=== PATIENT | male | born 1990 | race Caucasian/White ===

== ENCOUNTER 2019-09-21 21:23 | Emergency (ER) | payer OTHER, BC, SELFPAY ==
[2019-09-21 21:24] VITALS: BP 103/67; PULSE 84; RESP 16; TEMP 36.7; O2SAT 100; BMI 32.5
--- NOTE | 2019-09-21 22:57 | ED.VIS.GEN ---
History of Present Illness Chief Complaint: Other, Pain/Inj Informant: Patient Narrative: Stated that he injured his right ribs today at work approximately 3 hours ago. He stated a metal mellisa came down onto his right rib cage. He stated he heard a popping noise. No home treatment. Came in for further evaluation. Hurts to push on it and cough or take a deep breath. No previous injury to this area. Current severity is moderate. Does not feel short of breath. Past Medical History - Allergies and Home Meds Allergies/Adverse Reactions: Allergies No Known Allergies Allergy (Verified 09/21/19 21:26) Primary Care Physician: Care Physician,No Primary [Primary Care Provider] - Prior records reviewed: Yes Past Medical History: None Surgical History: noncontributory Lives: With Family Smoking Status: Current some day smoker Alcohol: None Drugs: None Review of Systems General: Denies: Chills, Fever, Sweats Eyes: Denies: Visual changes - bilaterally, Diplopia ENT: Denies: Rhinorrhea, Sore throat Cardiovascular: Denies: Chest pain, Palpitations Respiratory: Denies: Dyspnea, Cough, Dyspnea on exertion Gastrointestinal: Reports: Abdominal pain - Right rib cage area. Denies: Nausea, Vomiting, Diarrhea, Melena, Hematochezia Genitourinary: Denies: Dysuria, Hematuria, Frequency Musculoskeletal: Denies: Back pain, Extremity Pain Skin: Denies: Rash, Wounds Neurological: Denies: Headache, Weakness, Numbness Physical Exam Vital Signs/Narrative: Vital Signs Temp Pulse Resp BP Pulse Ox 09/21/19 21:24 98.1 F 84 16 103/67 100 General: Well nourished, Well developed, No Acute Distress Head: Normocephalic, Atraumatic Eyes: Perrl, EOMI ENT: Moist mucous membranes, No rhinorrhea Neck: Supple, Nontender Cardiovascular: Regular rate, Regular rhythm, No murmurs Respiratory: No distress, CTA bilaterally, Chest nontender Abdomen: Soft, Nondistended, Normal bowel sounds, Tender - Tender in the right anterior rib cage with a very small abrasion. There is no bony step-off or deformity or crepitus. There is no flail chest. Back: Nontender, Normal Inspection Extremities: Nontender, No edema Skin: Normal color, No rash Neurological: Alert, Oriented x3, Cranial nerves II-XII grossly intact, Normal Strength, Normal Sensation Psychological: Normal affect, Normal Mood Diagnostic/Tx/Re-eval - Medical Decision Making Patient given ibuprofen. X-ray of the ribs obtained. X-ray negative. Patient will follow-up as an outpatient with [facility]. He will take ibuprofen. We will follow-up as an outpatient ED Disposition - Plan for ED Patient: Disposition: Psych[facility] Hospital or Unit Diagnosis: Rib contusion Instructions: Rib Contusion Referrals: [facility] [GROUP OF PHYSICIANS] -
[2019-09-21] MEDS: Ibuprofen 400 MG Tablet 800 MG PO (23:10)
--- NOTE | 2019-09-21 23:10 | RAD_ITS ---
STUDY: X-RAY - UNILATERAL RIBS ( RIGHT ) WITH CHEST REASON FOR EXAM: Male, 29 years old. HIT WITH A BAR IN RIGHT RIB CAGE TECHNIQUE - RIBS: 2 view(s) of the ribs. TECHNIQUE - CHEST: Single AP portable view of the chest. COMPARISON: None. FINDINGS - RIBS: Normal visualized ribs without a demonstrated fracture. FINDINGS - CHEST: The lungs are clear and expanded. There is no demonstrated pleural abnormality. Normal size heart. Normal mediastinum and veronica. Normal visualized pulmonary arteries. Normal visualized aortic arch and descending thoracic aorta. Normal visualized thoracic spine. Normal visualized ribs, clavicles, and shoulders. There is no demonstrated abnormality of the visualized soft tissue structures of the upper abdomen. RAD/Ribs Uni Min 3V w/PA Chest IMPRESSION: RIBS: Normal x-ray examination of the ribs. CHEST: Normal x-ray examination of the chest. Electronically Signed: Sincere Cochran, at 0:07 EST Tel , Service support ,
[2019-09-22 00:37] VITALS: RESP 16
== END 2019-09-22 00:37 | disposition home or self-care (01) ==
PROVIDERS: Emergency Provider Emergency Medicine
DX: S20.211A Contusion of right front wall of thorax, initial encounter (principal); W22.8XXA Striking against or struck by other objects, initial encounter; Y93.9 Activity, unspecified; Y92.9 Unspecified place or not applicable; Y99.0 Civilian activity done for income or pay; F17.200 Nicotine dependence, unspecified, uncomplicated
CPT/HCPCS: 71101; 99283

== ENCOUNTER 2019-12-01 11:59 | Emergency (ER) | payer BC, SELFPAY ==
[2019-12-01 12:00] VITALS: BP 107/79; PULSE 76; RESP 18; TEMP 36.9; O2SAT 99; BMI 31.2
--- NOTE | 2019-12-01 12:24 | EKG12_ITS ---
Test Reason : CP Blood Pressure : / mmHG Vent. Rate : 065 BPM Atrial Rate : 065 BPM P-R Int : 130 ms QRS Dur : 090 ms QT Int : 394 ms P-R-T Axes : 000 -14 012 degrees QTc Int : 409 ms Normal sinus rhythm Normal ECG Confirmed by MATTEO CROWELL MD ([id number]), news copy editor SREE PLATA ([id number]) on 12/04/2019 3:37:12 PM Referred By: ADRIANA Confirmed By:MATTEO CROWELL MD
--- NOTE | 2019-12-01 12:24 | RAD_ITS ---
STUDY: X-RAY CHEST REASON FOR EXAM: Male, 29 years old. Chest pain TECHNIQUE: Single AP portable view of the chest. COMPARISON: 09/21/2019 FINDINGS: The lungs are clear and expanded. There is no demonstrated pleural abnormality. Normal size heart. Normal mediastinum and veronica. Normal visualized pulmonary arteries. Normal visualized aortic arch and descending thoracic aorta. Normal visualized thoracic spine. Normal visualized ribs, clavicles, and shoulders. There is no demonstrated abnormality of the visualized soft tissue structures of the upper abdomen. RAD/Chest 1 View (Portable) IMPRESSION: Normal x-ray examination of the chest. Electronically Signed: Cam Oakes, at 12:41 EST Tel , Service support ,
[2019-12-01 12:52] LABS: Absolute Lymphocyte Count 2.54 X10^3/uL (0.83-4.51); Absolute Neutrophil Count 3.3 X10^3/uL (2.0-7.7); Basophil# 0.08 X10^3/uL; Basophil% 1.2 % (0-1); Eosinophil# 0.27 X10^3/uL; Eosinophils% 3.9 % (0-5); Hemoglobin 14.6 g/dL (13.0-16.5); Lymphocyte # 2.54 X10^3/ul (4.0); Mean Corpuscular Volume 85.5 fL (80-94); Monocyte# 0.65 X10^3/uL; Monocyte% 9.5 % (0-10); NRBC Flagged by Analyzer 0 % (0-5); Neutrophil # 3.31 X10^3/uL (2.7-7.7); Neutrophil % 48.1 % (47-70); Platelet Count 269 K/mm3 (150-450); RBC Distribution Width SD 37.2 fl (35.1-43.9); Red Blood Count 5.03 M/mm3 (4.6-6.2); White Blood Count 6.9 K/mm3 (4.4-11.0)
[2019-12-01 13:05] LABS: D-Dimer Quantitative (DVT/PE) 0.29 FEU/ug/m (0.27-0.49)
[2019-12-01] MEDS: Ketorolac 15 MG/ML Vial IV (13:06)
[2019-12-01 13:07] VITALS: BP 113/68; PULSE 52; RESP 12; O2SAT 100
[2019-12-01 13:07] LABS: Anion Gap 3 (5-15); BUN 13 mg/dL (7-18); BUN/Creat Ratio 14.6 RATIO (10-20); Calcium,Total 9.2 mg/dL (8.5-10.1); Chloride 111 mmol/L (98-107); Creatinine, Serum 0.89 mg/dL (0.70-1.30); EST Glomerular Filtration Rate 106 mL/min (>60); Est Glom Filt Rate - Afr Amer 128 mL/min (>60); Glucose 86 mg/dL (74-106); Sodium Level 141 mmol/L (136-145)
--- NOTE | 2019-12-01 14:13 | ED.VIS.GEN ---
History of Present Illness Chief Complaint: Chest Pain Informant: Patient Narrative: Patient presents with chest pain for 2 to 3 weeks, it is worse with movement twisting and bending as well as pressing in that region. His pain got worse today. He has no radiation of the pain he has no back pain or tearing sensation. He has no DVT or PE risk factors. Pain is sharp stabbing. Past Medical History - Allergies and Home Meds Allergies/Adverse Reactions: Allergies No Known Allergies Allergy (Verified 12/01/19 12:05) Primary Care Physician: Tess Nicholson DO [Primary Care Provider] - Past Medical History: None Surgical History: noncontributory Smoking Status: Current every day smoker Review of Systems All systems negative except as indicated General: Denies: Fever Cardiovascular: Reports: Chest pain. Denies: Palpitations, Heart racing Respiratory: Denies: Dyspnea, Cough Gastrointestinal: Denies: Abdominal pain, Nausea Musculoskeletal: Denies: Myalgias, Neck pain, Back pain Neurological: Denies: Weakness Hematologic: Denies: Easy bruising Physical Exam Vital Signs/Narrative: Vital Signs Temp Pulse Resp BP Pulse Ox 12/01/19 13:07 52 L 12 113/68 100 12/01/19 12:00 98.4 F 76 18 107/79 99 General: Well nourished, Well developed ENT: Moist mucous membranes Neck: Supple Cardiovascular: Regular rate, Regular rhythm Respiratory: No distress, CTA bilaterally, Chest tenderness, - - There is reproducible chest wall pain in the costochondral fourth and fifth spaces left parasternal region. Abdomen: Soft, Nontender Back: Nontender, Normal Inspection Extremities: Nontender, No edema Skin: Normal color, No rash Neurological: Alert, Oriented x3 Diagnostic/Tx/Re-eval - Rhythm Strip Rhythm Strip: Sinus Rhythm Rate: 65 Ectopy: None - EKG Initial EKG Interpretation: - - Normal sinus rhythm with a rate of 65. Normal ME and QTc interval. - Medical Decision Making Patient has reproducible chest wall pain with a normal EKG and chest x-ray. He has a normal troponin his pain has been ongoing for 2 weeks. This is likely chest wall. I discussed with them I will put him on Naprosyn for home. ED Disposition - Plan for ED Patient: Disposition: Home or Assisted Living Diagnosis: Chest wall pain Instructions: CHEST WALL PAIN, Costochondritis Prescriptions: Naproxen [Naprosyn] 500 mg PO BID PRN #20 tab Prescription Printed Referrals: Tess Nicholson DO [Primary Care Provider] - 3-5 Days
[2019-12-01 14:44] VITALS: BP 117/83; PULSE 60; RESP 18; O2SAT 99
== END 2019-12-01 14:50 | disposition home or self-care (01) ==
PROVIDERS: Emergency Provider Emergency Medicine; PCP Family Medicine
DX: R07.89 Other chest pain (principal); F17.200 Nicotine dependence, unspecified, uncomplicated
CPT/HCPCS: 71045; 80048; 84484; 85025; 85379; 93005; 96374; 99285; J7030; A4216

== ENCOUNTER 2021-01-01 15:58 | Outpatient (RCR) | payer BC, SELFPAY | END 2021-03-04 23:59 | LOC: IMMUN 15:58 | PROVIDERS: PCP Family Medicine; Visit Provider Family Medicine | DX: Z23 Encounter for immunization (principal) | CPT/HCPCS: 0002A; 91300 ==

== ENCOUNTER 2022-02-06 07:33 | Emergency (ER) | payer BC, SELFPAY ==
[2022-02-06 07:34] VITALS: BP 109/77; PULSE 71; RESP 20; TEMP 36.8; O2SAT 99; BMI 31.8
--- NOTE | 2022-02-06 08:27 | EX.ED.DYSGE1 ---
HPI History of Present Illness Chief Complaint: Sore Throat Informant: patient Narrative Narrative: Patient is a 31-year-old male with history of depression on daily Zoloft and prior tonsillectomy presenting with sore throat. Patient states he woke up and he has extreme throat pain. Feels short of breath because he feels that his throat is swollen. Denies any drooling or difficulty swallowing. Denies any fever. States he felt fine when he went to bed last night. Denies any dental pain. Denies any ear pain. Never had a thing like this before. No other complaints at this time. PFSH PFSH Home Medications amoxicillin-pot clavulanate 1 tab PO BID #14 tab 02/06/22 [Rx Last Taken Unknown] ibuprofen 600 mg PO Q6H PRN #20 tab 02/06/22 [Rx Last Taken Unknown] sertraline 50 mg PO DAILY 02/06/22 [History Last Taken Unknown] Allergy/AdvReac Type Severity Reaction Status Date / Time No Known Allergies Allergy Verified 02/06/22 07:37 Social History Smoking Status: Current every day smoker tobacco type: cigarettes ROS ROS ED Constitutional Constitutional ED: Denies chills or fever(s) Eyes Eyes: Denies change in vision ENT ENT ED: Reports sore throat; Denies ear pain or rhinorrhea Cardiovascular Cardiovascular: Denies chest pain, orthopnea or palpitations Respiratory/Chest Respiratory/Chest: Reports dyspnea; Denies cough or orthopnea Gastrointestinal Gastrointestinal: Denies abdominal pain, diarrhea, nausea or vomiting Genitourinary Genitourinary ED: Denies dysuria Musculoskeletal Musculoskeletal: Denies arthralgias or myalgias Integumentary Denies rash Neurologic Neurologic: Denies headache(s) or weakness EXAM Physical Exam Const Vital Signs: 02/06/22 07:34 Temperature 98.2 F Temperature Source Temporal Pulse Rate 71 Respiratory Rate 20 H Blood Pressure 109/77 Blood Pressure Mean 87 Pulse Ox 99 Oxygen Delivery Method Room Air Positive well nourished and well developed General Appearance ED: well developed and NAD HEENT Reports TM's clear and dry mucous membranes HEENT Narrative: Slightly erythematous oropharynx. No ulcers or lesions appreciated. Uvula is midline. Halitosis present. Normal phonation. No elevation of the tongue. Negative for trauma Tympanic Membrane ED: Yes TM's clear Mouth ED: Yes dry mucous membranes Mouth: dry mucous membranes Eyes PERRL and EOMs intact bilaterally Neck supple Neck Narrative: No stridor. Patient does have mild diffuse tenderness of the anterior neck. No crepitus appreciated. No edema appreciated. Normal range of motion. Chest Wall inspection of chest normal Resp normal respiratory effort and clear to auscultation bilaterally Auscultation: Negative for wheezes Cardio regular rate, regular rhythm and no murmurs GI normal to inspection, nondistended, normoactive bowel sounds and non-tender Palpation: soft Extremity normal to inspection Neuro oriented x3 and CN's II-XII intact bilaterally Sensorium / Orientation: alert Psych mental status grossly normal Skin no rashes or lesions noted MDM MDM MDM Narrative Medical decision making narrative: Patient evaluated for sudden onset of anterior throat pain. He feels that he is having a hard time breathing because of the throat swelling and discomfort. Patient peers nontoxic. Does appear mildly dehydrated on exam is given IV fluids. No significant erythema on exam. Normal phonation. No clinical signs of airway obstruction. On repeat evaluation patient feels improved. CT shows soft tissue asymmetry of the left-sided hypopharynx which is read as inflammatory versus mass. Case is discussed with ENT on-call, Dr. Finch. He reviewed the images and feels that likely this is more inflammatory. Will discharge patient on Motrin and Augmentin. He was given Decadron in the emergency room. Patient will follow-up with Dr. Finch for scope and further evaluation. At this time I am not concerned for airway compromise and patient is given return precautions. He verbalizes agreement of this plan. Discharged home in stable condition Lab Data Attestation: I reviewed the patient's lab results. Labs: Laboratory Results - last 24 hr 02/06/22 02/06/22 08:29 08:29 WBC 10.7 RBC 5.11 Hgb 15.0 Hct 43.6 MCV 85.3 MCH 29.4 MCHC 34.4 RDW Std Deviation 36.7 RDW Coeff of Obdulio 11.9 Plt Count 248 MPV 9.5 Immature Gran % (Auto) 0.300 Neut % (Auto) 67.8 Lymph % (Auto) 20.9 [place] % (Auto) 7.9 Eos % (Auto) 2.2 Baso % (Auto) 0.9 Absolute Neuts (auto) 7.3 Absolute Lymphs (auto) 2.23 Nucleated RBC % 0 Sodium 140 Potassium 4.1 Chloride 109 H Carbon Dioxide 29.0 Anion Gap 2 L BUN 19 H Creatinine 0.93 Estim Creat Clear Calc 124.00 Est GFR (MDRD) Af Amer 120 Est GFR (MDRD) Non-Af 99 BUN/Creatinine Ratio 20.4 H Glucose 93 Calcium 8.7 Radiography Diagnostic Testing: Clinical Impression(s) from Imaging Studies Soft Tissue Neck CT 02/06/22 08:43 IMPRESSION: Soft tissue asymmetry is seen in the left side of the hypopharynx just caudad to the base of the tongue as described. Clinical correlation is recommended. Electronically Signed: Chandana Nuñez MD at 8:59 EDT , Discharge Plan Triage Chief Complaint: Sore Throat ED Provider: Arabella Moore Dx/Rx/DC Orders Clinical Impression: Pharyngitis, acute, Abnormal CT scan Instructions: ED Pharyngitis, Viral Prescriptions: New ibuprofen 600 mg tablet 600 mg PO Q6H PRN (Reason: pain) Qty: 20 RF: 0 amoxicillin-pot clavulanate 875-125 mg tablet 1 tab PO BID Qty: 14 RF: 0 No Action sertraline 50 mg tablet 50 mg PO DAILY RF: 0 Primary Care Provider: Tess Nicholson Referrals: Israel Etienne MD [STAFF PHYSICIAN] - As soon as possible Tess Nicholson DO [Primary Care Provider] - Activity Restrictions/Additional Instructions: Your CT showed a focal area of swelling which could be inflammatory versus a mass. More likely this is inflammatory we will put you on anti-inflammatories and antibiotics. You are given a dose of long-acting steroids in the ER. Please follow-up with ear nose and throat doctor. Call to schedule an appointment within the next week. Disposition Disposition: Home, Self Care
[2022-02-06] MEDS: Ketorolac 15 MG/ML Vial IV (08:35)
[2022-02-06] MEDS: 0.9% Normal Saline 1,000 ML 999 ML IV (08:35)
[2022-02-06] MEDS: dexAMETHasone 4 MG Tablet 10 MG PO (08:35)
[2022-02-06 08:39] LABS: Absolute Lymphocyte Count 2.23 X10^3/uL (0.83-4.51); Absolute Neutrophil Count 7.3 X10^3/uL (2.0-7.7); Basophil% 0.9 % (0-1); Eosinophil# 0.23 X10^3/uL; Eosinophils% 2.2 % (0-5); Hematocrit 43.6 % (40-54); Lymphocyte # 2.23 X10^3/ul (0.83-4.51); Lymphocyte % 20.9 % (19-41); Mean Corp Hgb Conc 34.4 g/dL (32-36); Mean Corpuscular Hgb 29.4 pg (27.0-32.0); Mean Corpuscular Volume 85.3 fL (80-94); Mean Platelet Vol. 9.5 fl (6.2-12.0); Monocyte# 0.84 X10^3/uL; Monocyte% 7.9 % (0-10); NRBC Flagged by Analyzer 0 % (0-5); Neutrophil # 7.25 X10^3/uL (2.7-7.7); Neutrophil % 67.8 % (47-70); Platelet Count 248 K/mm3 (150-450); RBC Distribution Width CV 11.9 % (11.6-14.6); RBC Distribution Width SD 36.7 fl (35.1-43.9); Red Blood Count 5.11 M/mm3 (4.6-6.2); White Blood Count 10.7 K/mm3 (4.4-11.0)
--- NOTE | 2022-02-06 08:43 | CT_ITS ---
STUDY: CT SOFT TISSUE NECK WITH CONTRAST REASON FOR EXAM: Male, 31 years old. Odynophagia RADIATION DOSAGE (If Supplied By Facility): CTDIvol = ( 15.20 ) mGy, DLP = ( 474.55 ) mGycm TECHNIQUE: The patient was scanned in a multi-detector CT scanner. High resolution transaxial imaging was performed following intravenous administration of IV 75mL Isovue-370. Sagittal and coronal images were reconstructed. Individualized dose optimization techniques were used for this CT. COMPARISON: None. FINDINGS: Normal bilateral parotid glands. Normal bilateral prepared foods associate spaces. Normal bilateral parapharyngeal spaces. Normal bilateral carotid spaces. Normal bilateral sublingual and submandibular glands and spaces. Normal visualized nasopharynx. Normal retropharyngeal space. Normal perivertebral space. Normal visualized bilateral faucial tonsils. There is soft tissue asymmetry along the left side of the hypopharynx just caudad to the base of the tongue on the left side. This asymmetry measures 1.7 cm x 2 cm. This may represent a localized inflammatory process versus possible mass. Clinical correlation recommended. There are minimally enlarged lymph nodes of the neck, with preservation of normal brian architecture, consistent with a reactive lymph hyperplasia. There is no demonstrated solid or cystic mass lesion. There is no abnormal contrast enhancement. Normal epiglottis, bilateral vallecula and hypopharynx. The pre-epiglottic and paraglottic adipose spaces are normal. Normal visualized bilateral piriform sinuses, aryepiglottic folds, vocal cords, and arytenoid-cricoid articulations. Normal subglottic trachea. Normal bilateral lobes of the thyroid gland. Normal visualized pulmonary apices. Mucosal thickening of the ethmoid sinuses bilaterally. Focal mucosal thickening along the anterior lateral aspect of the right sphenoid sinus. Normal visualized cervical spine. CT/Soft Tissue Neck WITH Contrast IMPRESSION: Soft tissue asymmetry is seen in the left side of the hypopharynx just caudad to the base of the tongue as described. Clinical correlation is recommended. Electronically Signed: Chandana Nuñez MD at 8:59 EDT ,
[2022-02-06 08:48] LABS: Anion Gap 2 (5-15); BUN 19 mg/dL (7-18); BUN/Creat Ratio 20.4 RATIO (10-20); Calcium,Total 8.7 mg/dL (8.5-10.1); Chloride 109 mmol/L (98-107); Creatinine, Serum 0.93 mg/dL (0.70-1.30); EST Glomerular Filtration Rate 99 mL/min (>60); Est Glom Filt Rate - Afr Amer 120 mL/min (>60); Glucose 93 mg/dL (74-106); Potassium 4.1 mmol/L (3.5-5.1); Sodium Level 140 mmol/L (136-145)
[2022-02-06] MEDS: Amox/Clavulanate 875 MG Tablet PO (09:47)
[2022-02-06 09:49] VITALS: BP 118/84; PULSE 72; RESP 15; O2SAT 97
== END 2022-02-06 09:51 | disposition home or self-care (01) ==
PROVIDERS: Emergency Provider Emergency Medicine; PCP Family Medicine; Visit Provider Emergency Medicine
DX: J02.9 Acute pharyngitis, unspecified (principal); F17.210 Nicotine dependence, cigarettes, uncomplicated; R22.1 Localized swelling, mass and lump, neck; R06.02 Shortness of breath; R93.89 Abnormal findings on diagnostic imaging of other specified body structures
CPT/HCPCS: 70491; 80048; 85025; 96361; 96374; 99284; Q9967; A4216

== ENCOUNTER → 2022-02-09 | Outpatient (CLI) | payer BC, SELFPAY | END | disposition home or self-care (01) | LOC: LABSPEC 15:15 | PROVIDERS: PCP Family Medicine; Visit Provider Otolaryngology | DX: J02.9 Acute pharyngitis, unspecified (principal) | CPT/HCPCS: 87070 ==

== ENCOUNTER → 2024-01-14 | Outpatient (CLI) | payer BC, SELFPAY ==
--- NOTE | 2024-01-14 13:28 | MRI_ITS ---
STUDY: MRI LEFT SHOULDER REASON FOR EXAM: Male, 33 years old. Pain, assess SLAP or RC tear - fillings in teeth. TECHNIQUE: Standardized fat and water weighted pulse sequences were obtained in all 3 orthogonal planes. COMPARISON: Left shoulder radiographs dated 12/31/2023. FINDINGS: Normal supraspinatus tendon. Normal infraspinatus tendon. Normal subscapularis tendon. Normal teres minor tendon. Normal supraspinatus muscle. Normal infraspinatus muscle. Normal subscapularis muscle. Normal teres minor muscle. Normal glenohumeral articulation. Normal humeral head and visualized proximal humerus. Normal biceps labral complex. Normal intracapsular long biceps tendon. Normal labrum. Normal capsulo-ligamentous complex. Normal rotator interval. There is hypertrophic acromioclavicular arthrosis, with juxta-articular marrow edema and inferior osteophyte formation, with minimal effacement of the supraspinatus myotendinous junction (coronal T2 series 6 image 9). There is a Type II morphology (curved), with a neutral orientation. There is no subacromial-subdeltoid bursal fluid. Normal visualized coracohumeral and coracoacromial ligaments. Normal quadrilateral space. Normal axillary space. Normal deltoid muscle. Normal trapezius muscle. MRI/Upper Ext Joint Only(Routine) IMPRESSION: Hypertrophic acromioclavicular arthrosis, with juxta-articular marrow edema and inferior osteophyte formation, with minimal effacement of the supraspinatus myotendinous junction. No rotator cuff tear or discrete labral tear. Electronically Signed: Med Chauhan MD at 14:46 EDT ,
== END | disposition home or self-care (01) ==
PROVIDERS: PCP Family Medicine; Referring Provider Orthopaedic Surgery Sports Medicine; Visit Provider Orthopaedic Surgery Sports Medicine
DX: M25.512 Pain in left shoulder (principal)
CPT/HCPCS: 73221

== ENCOUNTER 2024-02-16 08:52 | Day surgery (SDC) | payer BC, SELFPAY ==
[2024-02-16] VITALS (9 sets, daily range): BP systolic 109–218; BP diastolic 68–105; PULSE 65–77; RESP 16–20; TEMP 35.7–36.2; O2SAT 93–97; BMI 35.9
[2024-02-16] MEDS: Lactated Ringers 1,000 ML 15 ML IV (09:41)
--- NOTE | 2024-02-16 11:09 | HP.PCM_ITS ---
HPI - General HPI Narrative RANDA SHABAZZ, is a 33 M who presents for left shoulder arthroscopy, subacromial decompression, distal clavicle excision. no changes to h and p. ok to proceed. plan for block. rab post op instructions and narcotic counselling. no further concerns or questions. MR#: [id number] Acct: [id number] Name: RANDA SAHBAZZ Rep #: [id number] : 1990 Provider: Dr. James Monterroso MD Age/Sex: 33/M Location[place] [facility] [place] Status: Signed Intake Vital Signs 12/30/2412:05 Height 6 ft Weight: 268 lb 8 oz BMI 36.3 Intake Visit Reasons: LEFT SHOULDER Is patient in pain?: Yes Allergies No Known Allergies Allergy (Verified 01/24/24 15:56) Medications cholecalciferol (vitamin D3) 1,250 mcg (50,000 unit) capsule 1,250 mcg PO 2XW 12/31/23 [History Confirmed 01/24/24] hydroxyzine HCl 10 mg tablet 20 mg PO BID 12/31/23 [History Confirmed 01/24/24] meloxicam 15 mg tablet 15 mg PO QDAY 12/31/23 [History Confirmed 01/24/24] sertraline 100 mg tablet 100 mg PO QDAY 12/31/23 [History Confirmed 01/24/24] PFSH Medical History (Updated 01/24/24 @ 14:23 by James Monterroso MD) Arthrosis of left acromioclavicular joint Impingement of left shoulder Left shoulder pain Surgical History (Updated 12/31/23 @ 13:12 by Kristine Jarquin) Hx of adenoidectomy Hx of appendectomy Hx of tonsillectomy Family History (Updated 12/31/23 @ 13:14 by Kristine Jarquin) Grandfather Lung cancerGrandmother Dementia Social History (Updated 12/31/23 @ 13:13 by Kristine Jarquin) Smoking Status: Former smoker alcohol intake: current alcohol intake frequency: a few times a week HPI LEFT SHOULDER Details: This documentation accurately reflects the service provided and the decisions made by me, Dr. James Monterroso MD 01/24/24 [id number]. Part of today?s visit was documented by [ ], acting as scribe. RANDA SHABAZZ is a 33 year old M here today for follow-up left shoulder MRI. doing a bit better this morning, better ROM. Patient has continued to experience pain over the last 6 months since July. It gets worse with the a lot of activity especially pushing exercises most the pain is actually on the superior aspect of the shoulder and worse with reaching across the body. Patient has tried rest activity modifications anti-inflammatories as well as self-directed exercises for over 6 weeks. Ortho Exam General General: Yes no acute distress Neurologic: Yes alert and Yes oriented x3 Psychologic: Yes reasonable and appropriate Left Shoulder Skin/Wound: Yes CDI, No ecchymosis, No erythema and No swelling Testing: Yes Hawkin's, Yes Neer's, Yes Speed's, No TTP Biceps, No TTP AC Joint, Yes AROM-External Rotation at side 0-60, No translation, Yes empty can, No jerk, Yes Gonzales, Yes cross arm, Yes scapular symmetry, No scapular winging and Yes belly press normal SHOULDER: normal motor and sens to axillary N, MRU and AIN/PIN. Hand warm well perfused normal radial pulse active FE 170, IR to post belt line, normal bear hug There is pain at the AC joint pain superiorly as well as a positive cross body adduction test. Supplemental Info [facility] [address] [place] [address] Upper Ext Joint Only(Routine) MR#: [id number] Acct: [id number] Name: RANDA SHABAZZ Rep #: [id number] : 1990 M 33 From: Med Chauhan MD PCP: Dr. Tess Nicholson, DO Status: REG CLI Study: Upper Ext Joint Only(Routine) Date of Exam: 01/14/24 Exam# [id number] Ordering Dr: James Monterroso MD STUDY: MRI LEFT SHOULDER REASON FOR EXAM: Male, 33 years old. Pain, assess SLAP or RC tear - fillings in teeth. TECHNIQUE: Standardized fat and water weighted pulse sequences were obtained in all 3 orthogonal planes. COMPARISON: Left shoulder radiographs dated 12/31/2023. FINDINGS: Normal supraspinatus tendon. Normal infraspinatus tendon. Normal subscapularis tendon. Normal teres minor tendon. Normal supraspinatus muscle. Normal infraspinatus muscle. Normal subscapularis muscle. Normal teres minor muscle. Normal glenohumeral articulation. Normal humeral head and visualized proximal humerus. Normal biceps labral complex. Normal intracapsular long biceps tendon. Normal labrum. Normal capsulo-ligamentous complex. Normal rotator interval. There is hypertrophic acromioclavicular arthrosis, with juxta-articular marrow edema and inferior osteophyte formation, with minimal effacement of the supraspinatus myotendinous junction (coronal T2 series 6 image 9). There is a Type II morphology (curved), with a neutral orientation. There is no subacromial-subdeltoid bursal fluid. Normal visualized coracohumeral and coracoacromial ligaments. Normal quadrilateral space. Normal axillary space. Normal deltoid muscle. Normal trapezius muscle. MRI/Upper Ext Joint Only(Routine) IMPRESSION: Hypertrophic acromioclavicular arthrosis, with juxta-articular marrow edema and inferior osteophyte formation, with minimal effacement of the supraspinatus myotendinous junction. No rotator cuff tear or discrete labral tear. Electronically Signed: Med Chauhna MD at 14:46 EDT Reading Location ID and State: [facility] / [place] , Service support , I independently reviewed the imaging. Concur with radiologist report. Coding Level of Care Code Off vis,est,level 3 Diagnoses Left shoulder pain M25.512 Impingement of left shoulder M25.812 Arthrosis of left acromioclavicular joint M19.012 Assessment and Plan Assessment and Plan (1) Left shoulder pain: Status: Acute Plan: 33-year-old man follow-up left shoulder MRI which shows arthrosis of the AC joint edema of the distal clavicle as well as mild impingement syndrome no rotator cuff tears. Patient counseled on diagnosis prognosis different treatment options available to him including rest ice anti-inflammatories activity modifications physical therapy doing nothing injections subacromial space or even at the AC joint as well as a surgical management. My hands surgery would involve left shoulder arthroscopy, subacromial decompression, distal clavicle excision. I think a significant amount of his pain is actually coming from the AC joint as well as the distal clavicle edema which is present on the MRI. He understands and wishes to proceed with surgical management of this and signed the consent form for left shoulder arthroscopy, subacromial decompression, distal clavicle excision. Pros and cons risks and benefits were discussed with the patient including but not limited to infection, pain, stiffness, bleeding, damage to surrounding structures, neurovascular injury, recurrence or retear, failure or wear of hardware or fixation, instability, fracture, deep vein thrombosis and pulmonary embolism, anesthetic risks, , patient dissatisfaction, need for further surgery and other risks. Patient understood and wished to proceed with surgery, and signed the informed consent documentation. [facility] Medical History (Updated 02/02/24 @ 11:18 by Debi Morejon) Depression Anxiety Marijuana use Alcohol use Fatty liver Migraine headache Vapes nicotine containing substance Former smoker Arthrosis of left acromioclavicular joint Impingement of left shoulder Left shoulder pain Home Medications ?Medication ?Instructions ?Recorded ?Last Taken ?Type cholecalciferol (vitamin D3) 1,250 1,250 mcg PO MOTH 12/31/23 Unknown History mcg (50,000 unit) capsule hydroxyzine HCl 10 mg tablet 20 mg PO BID PRN PRN anxiety 12/31/23 Unknown History meloxicam 15 mg tablet 15 mg PO QDAY 12/31/23 Unknown History sertraline 100 mg tablet 100 mg PO QDAY 12/31/23 Unknown History Allergy/AdvReac Type Severity Reaction Status Date / Time No Known Allergies Allergy Verified 02/16/24 09:26 Family History (Updated 12/31/23 @ 13:14 by Kristine Jarquin) Grandfather Lung cancer Grandmother Dementia Surgical History (Updated 02/02/24 @ 11:18 by Debi Morejon) Hx of wisdom tooth extraction Hx of adenoidectomy Hx of appendectomy Hx of tonsillectomy Social History (Updated 12/31/23 @ 13:13 by Kristine Jarquin) Smoking Status: Current every day smoker tobacco type: cigarettes and e- cigarettes alcohol intake: current alcohol intake frequency: a few times a week Vital Signs Vital Signs Vital Signs: 02/16/24 09:27 02/16/24 09:27 Temperature 97.2 F L Temperature Source Temporal Pulse Rate 73 Respiratory Rate 16 Respiratory Pattern Normal Blood Pressure 109/83 H Blood Pressure Mean 91 Blood Pressure Source Monitor Blood Pressure Position Semi-Fowlers Blood Pressure Location Left Arm Pulse Ox 97 Oxygen Delivery Method Room Air Weight Weight: 264 lb 12.403 oz Body Mass Index (BMI) 35.9
[2024-02-16] MEDS: Cefazolin 3 GM in 0.9% Normal Saline (100mL Bag) 100 ML IV (11:31)
[2024-02-16] MEDS: Epinephrine (1 mg/ml) 1 MG/ML VIAL (11:59)
--- NOTE | 2024-02-16 12:39 | OP.PCM_ITS ---
Problems Associated Problem List Diagnoses (1) Arthrosis of left acromioclavicular joint: (2) Impingement of left shoulder: (3) Left shoulder pain: Report of Operation Date of Procedure: 02/16/24 Pre-Operative Diagnosis: L shoulder ACJ arthrosis and impingement Post-Operative Diagnosis: same Surgery/Procedure Performed:: L shoulder arthroscopy, debridement, subacromial decompression and distal clavicle excision Surgeon: James Monterroso Type of Anesthesia: Block,Regional and General Anesthesiologist: Teodoro Putnam Estimated Blood Loss (mL): 50 Description of Procedure: Patient brought to the operating room theater. Placed supine on the table. General anesthesia induced. 3 g IV Ancef administered prior to the start of the procedure. Patient transferred left side up lateral decubitus beanbag positioner axillary roll used all bony prominences padded. SCDs on the legs. Upper extremity prepped and draped in the usual sterile fashion with chlorhexidine-based prep solution allowing over 3 minutes drying time prior to draping. Arm in 10 pounds of traction with 45 degrees of abduction. Preoperative timeout performed to confirm the site the patient and the surgery. Began by inserting the arthroscope into the intra-articular portion of the shoulder posterior portal. Did a full diagnostic arthroscopy. Subscapularis as well as rest the rotator cuff tendons appeared normal and intact with there was some minor undersurface fraying of the supraspinatus that I gently debrided. Un [place] 10% thickness. I established inside out spinal needle localized portal through the rotator interval just posterior to the biceps tendon. Biceps tendon itself appeared normal but at the root of the superior labrum there was some minor amount of fraying no gross instability of the biceps upon probing. I debrided the superior labrum. No labrum tear anteriorly. No loose bodies. Axillary recess was normal. Normal cartilage on the glenoid and humeral head. Arthroscopy pictures taken and saved throughout the case. I then inserted the arthroscope into the subacromial space established with lateral accessory portal. There was quite a bit of inflammatory bursitis I did a complete bursectomy down to the lateral gutters. This was an extensive bursectomy. I probed the rotator cuff no tears. I did a subacromial decompression for 3 mm at the anterolateral leading edge for slight downsloping, corrected this to flat undersurface. At the distal clavicle I identified this and using the anterior portal I performed a distal clavicle excision for about 4 mm down to flat margins. I inserted the arthroscope into the AC joint itself to confirm appropriate distal clavicle excision. Case terminated arthroscope withdrawn. Skin cleaned with wet and dry dressing close with the portals with 3-0 Monocryl suture followed by Adaptic 4 x 4 gauze ABD dressing cloth tape and a sling for the upper extremity. Patient woken up from the general anesthetic transferred off the operating table taken postanesthetic care unit in stable condition. All sponge needle instrument counts were correct no complications. CPT code 39280 + [id number]?+ [id number]? Complications none Admit VTE Documentation VTE Present on Admission: No VTE Mechan Device Prophylaxis: SCD's VTE Pharm Prophylaxis ordered?: No Reason prophylaxis not ordered:: Treatment Not Indicated Procedures Musculoskeletal 20xxx-29xxx: Other Procedure See Report
--- NOTE | 2024-02-16 12:47 | DCINST_ITS ---
Discharge Instructions Diet Discharge Diet: No restrictions Activity Discharge Activity: Return to Normal Activity Lifting Restrictions: no heavy lifting, ok for pendulums 4x/day, ok to remove sling as needed Dressing / Incision Call your doctor if your incision/area has: Continuous Slow Oozing, Sudden Increased Bleeding, Increased Pain/ Swelling, Increased Redness, Foul Smelling Discharge and Swelling at the incision site Change Dressing in: leave in place till F/U Follow Up Care Please Follow Up With: James Monterroso MD When: 2 days Test Results: Test results from this visit will be discussed in further detail at your follow- up appointment, if applicable. Discharge Plan Admission Attending Provider: James Monterroso Primary Care Provider: Tess Nicholson Instructions Print Language: Persian Discharge Orders/Prescriptions Prescriptions: New oxycodone-acetaminophen [Endocet] 5-325 mg tablet 1 tab PO Q4H MDD 6 PRN (Reason: pain) 4 Days Qty: 20 0RF No Action hydroxyzine HCl 10 mg tablet 20 mg PO BID PRN PRN (Reason: anxiety) sertraline 100 mg tablet 100 mg PO QDAY meloxicam 15 mg tablet 15 mg PO QDAY cholecalciferol (vitamin D3) 1,250 mcg (50,000 unit) capsule 1,250 mcg PO MOTH Referrals / Follow Up: Tess Nicholson DO [Primary Care Provider] - James Monterroso MD [Med Staff - Active Staff] - Disposition Disposition (needs filled in before D/C Order can be placed): Home, Self Care
== END 2024-02-16 14:51 | disposition home or self-care (01) ==
LOC: SDC 08:58 → AC 08:59
PROVIDERS: PCP Family Medicine; Referring Provider Orthopaedic Surgery Sports Medicine; Visit Provider Orthopaedic Surgery Sports Medicine
PROC: (CPT 29805; principal; 2024-02-16 10:35)
DX: M19.012 Primary osteoarthritis, left shoulder (principal); M25.812 Other specified joint disorders, left shoulder; F17.290 Nicotine dependence, other tobacco product, uncomplicated; F17.210 Nicotine dependence, cigarettes, uncomplicated; F32.A Depression, unspecified; F41.9 Anxiety disorder, unspecified; Z79.899 Other long term (current) drug therapy
CPT/HCPCS: 29824; 29826; 01630; 64415; J7120; J2405

== ENCOUNTER 2024-03-10 11:02 | Emergency (ER) | payer BC, SELFPAY ==
[2024-03-10 11:02] VITALS: BP 134/89; PULSE 84; RESP 16; TEMP 36.2; O2SAT 98; BMI 36.2
--- NOTE | 2024-03-10 11:47 | EDS_ITS ---
HPI <SARA Philip - Last Filed: 03/10/24 13:20> History of Present Illness Chief Complaint: Upper Extremity Injury Narrative Narrative: 33-year-old male had surgery on his left shoulder by Dr. Monterroso on February 18, 2024 with arthroscopy, debridement and subacromial decompression and distal clavicle excision. He was recovering well and followed up with orthopedics and was cleared to remove the sling and had not required pain medication this week. Over the last few days has had 3 episodes of pain in the left shoulder when using his left arm. It happens with minor movements such as setting a pen down or holding his arm to the side below 90 degrees. He gets a sharp pain in the shoulder that either radiates towards his neck or down the tricep area of his left arm. The sharp pain only lasts a few seconds and then he has dull pain lasting about an hour. No new fall or injury. He is right hand dominant. [facility] <SARA Philip - Last Filed: 03/10/24 13:20> [facility] Medical History Depression Anxiety Marijuana use Alcohol use Fatty liver Migraine headache Vapes nicotine containing substance Former smoker Arthrosis of left acromioclavicular joint Impingement of left shoulder Left shoulder pain Home Medications ?Medication ?Instructions ?Recorded ?Last Taken ?Type cholecalciferol (vitamin D3) 1,250 1,250 mcg PO MOTH 12/31/23 Unknown History mcg (50,000 unit) capsule hydroxyzine HCl 10 mg tablet 20 mg PO BID PRN PRN anxiety 12/31/23 Unknown History sertraline 100 mg tablet 100 mg PO QDAY 12/31/23 Unknown History naproxen 500 mg tablet (Naprosyn) 500 mg PO BID PRN pain #20 tabs 03/10/24 Unknown Rx Allergy/AdvReac Type Severity Reaction Status Date / Time No Known Allergies Allergy Verified 03/10/24 11:03 Family History Grandfather Lung cancer Grandmother Dementia Surgical History Hx of wisdom tooth extraction Hx of adenoidectomy Hx of appendectomy Hx of tonsillectomy Social History Smoking Status: Current every day smoker tobacco type: cigarettes and e- cigarettes alcohol intake: current alcohol intake frequency: a few times a week ROS <SARA Philip - Last Filed: 03/10/24 13:20> ROS ED ROS Narrative Constitutional: Negative for fever, chills, malaise. Neuro: Negative for motor/sensory dysfunction. Skin: Negative for rash, abscess, or wound. Musc: Positive for left shoulder pain. No swelling or trauma. EXAM <SARA Philip - Last Filed: 03/10/24 13:20> Physical Exam Narrative Exam Narrative: CONST: Patient sitting in no acute distress. EYES: Normal inspection. NECK: Normal inspection. RESP: No respiratory distress, CTAB. CVS: Regular rate and rhythm, no murmur, no gallop. SKIN: Color normal, no rash, warm, dry, intact. EXTREMITIES: Normal appearance of bilateral upper extremities. Tender palpation over left bicipital groove, no tenderness of the clavicle, spine, scapula, rest of the left upper extremity. 5/5 strength in shoulder abduction, elbow and wrist flexion/extension, and pump room operator strength. 2+ radial pulses. Normal motor and sensory function in axillary median radial ulnar distributions. NEURO: Alert and answering questions appropriately. PSYCH: Normal affect. Const Vital Signs: 03/10/24 11:02 Temperature 97.2 F L Temperature Source Temporal Pulse Rate 84 Respiratory Rate 16 Blood Pressure 134/89 H Blood Pressure Mean 104 Pulse Ox 98 Oxygen Delivery Method Room Air MDM <SARA Philip - Last Filed: 03/10/24 13:20> MDM MDM Narrative Medical decision making narrative: Patient is 3 weeks postop from left shoulder surgery with arthroscopy/osteophyte removal presenting with pain with left shoulder movements over the last few days. The postop incisions are almost fully healed with no signs of infection. He can range the shoulder to 90 degrees and is neurovascularly intact. X-ray shows erosive changes of the distal left clavicle which is where the orthopedist shaved the area is consistent with postsurgical changes. No other acute findings. He was treated with IM Toradol and prescribed naproxen and I recommended follow-up with his surgeon. He was discharged in stable condition. <Dr. Felix Butts, DO - Last Filed: 03/10/24 14:43> [facility] Treatment and Re-Evaluation Narrative: I have personally performed a face to face assessment of the patient and have reviewed the NIOCLE Note. I performed a substantive portion of the visit including all aspects of the following. My wolf findings include: History: Patient presents with left shoulder pain that has been getting worse over the past 3 days. Patient denies any trauma or injury. Patient states he had a recent shoulder surgery by Dr. Monterroso to remove some osteophytes. Patient states it was healing well until 3 days ago. Patient states that it is worse with certain movements. Patient states nothing seems to help with it. Patient admits to some tingling down his left arm and into his left neck. Exam: Vital signs are stable. Patient is afebrile. Patient is in no acute distress. Heart was regular rate and rhythm. Lungs are clear and equal bilaterally. Musculoskeletal exam reveals tenderness over the anterior aspect of the left shoulder. There is no obvious deformity noted. The arthroscopic incisions are healing well. There is no sign of any infection. There is no erythema or warmth noted. Range of motion was limited in all motions of the left shoulder secondary to pain. Strength is 5/5 bilaterally in the upper extremities. There are no sensory deficits noted. Radial pulses are equal bilaterally. Medical Decision Making: Differential diagnosis includes ligament sprain, tendinitis, osteoarthritis, and acromioclavicular separation. X-rays of the left shoulder will be obtained to assess for fracture and acromioclavicular separation. Patient was given injection of Toradol here. X-rays of the left shoulder were obtained. There are 3 views. On my independent interpretation, there is no acute fracture or dislocation noted. There is no foreign body noted. There are no osteophytes noted. Radiologist also interpreted the x-rays and agrees. Patient was advised of his findings. Patient was instructed use ice to the area. Patient was instructed to take Tylenol or ibuprofen as needed for pain. Patient was instructed to follow-up with Dr. Monterroso in 5 to 7 days. Patient was instructed to return if worse in any way. Patient understood and was agreeable with the plan. All questions were answered. Discharge Plan Triage Chief Complaint: Upper Extremity Injury ED Midlevel Provider: Maritza Gomez ED Provider: Schwiger,Felix Dx/Rx/DC Orders Clinical Impression: Left shoulder pain Instructions: ED Shoulder Pain, Uncertain Cause Prescriptions: New naproxen [Naprosyn] 500 mg tablet 500 mg PO BID PRN (Reason: pain) Qty: 20 0RF No Action hydroxyzine HCl 10 mg tablet 20 mg PO BID PRN PRN (Reason: anxiety) sertraline 100 mg tablet 100 mg PO QDAY cholecalciferol (vitamin D3) 1,250 mcg (50,000 unit) capsule 1,250 mcg PO MOTH Primary Care Provider: Tess Nicholson Referrals: Tess Nicholson DO [Primary Care Provider] - Activity Restrictions/Additional Instructions: This could be postoperative pain from the surgery, arthritis, or ligamentous injury. Take naproxen or [id number] or Tylenol as needed and follow-up with Dr. Monterroso. Print Language: Chinese Disposition Disposition: Home, Self Care Discharge Date/Time: 03/10/24 13:22
[2024-03-10] MEDS: Ketorolac 30 MG/ML Syringe IM (11:56)
--- NOTE | 2024-03-10 12:10 | RAD_ITS ---
STUDY: X-RAY - LEFT SHOULDER REASON FOR EXAM: Male, 33 years old. Left shoulder pain. History of prior injury and surgery. TECHNIQUE: 4 view(s) of the shoulder. COMPARISON: Comparison is made with prior study of December 31, 2023. FINDINGS: Normal glenohumeral articulation. There now is evidence of a irregular erosive changes in the distal portion of the left clavicle. This may be related either to prior surgical procedure versus possible infection. Normal acromion. Normal humeral head and visualized proximal humerus. The soft tissue structures are unremarkable. Normal visualized pulmonary apex. RAD/Shoulder min 2 Views IMPRESSION: Since prior study, there is mild erosive changes in the distal portion of the left clavicle. This may be postsurgical in nature. Otherwise, an infectious process should be ruled out. Electronically Signed: Chandana Nuñez MD at 13:07 EDT ,
[2024-03-10 13:21] VITALS: BP 134/78; PULSE 82; RESP 16; TEMP 36.7; O2SAT 99
== END 2024-03-10 13:22 | disposition home or self-care (01) ==
PROVIDERS: Emergency Provider Emergency Medicine; PCP Family Medicine; Visit Provider Emergency Medicine
DX: M25.512 Pain in left shoulder (principal); F17.210 Nicotine dependence, cigarettes, uncomplicated; F17.290 Nicotine dependence, other tobacco product, uncomplicated
CPT/HCPCS: 73030; 96372; 99282

== ENCOUNTER 2024-09-26 05:04 | Emergency (ER) | payer BC, SELFPAY ==
[2024-09-26 05:06] VITALS: BP 131/82; PULSE 109; RESP 18; TEMP 37.1; O2SAT 97; BMI 29.5
[2024-09-26] MEDS: proCHLORPERazine 10 MG/2 ML Vial IV (05:33)
[2024-09-26] MEDS: Ketorolac 30 MG/ML Syringe IV (05:33)
[2024-09-26] MEDS: 0.9% Normal Saline (1000mL) 1,000 ML 999 ML IV (05:33)
[2024-09-26] MEDS: DiphenhydrAMINE 50 MG/ML Syringe 25 MG IV (05:34)
[2024-09-26 05:57] LABS: AST(SGOT) 22 U/L (15-37); Alanine Aminotransfer ALT/SGPT 58 U/L (16-61); Albumin, Serum 4.2 g/dL (3.2-5.0); Alkaline Phosphatase 70 U/L (45-117); Anion Gap 9 (5-15); BUN 28 mg/dL (7-18); BUN/Creat Ratio 25.7 RATIO (10-20); Bilirubin, Direct 0.19 mg/dL (0.00-0.30); Calcium,Total 9.4 mg/dL (8.5-10.1); Chloride 107 mmol/L (98-107); Creatinine, Serum 1.09 mg/dL (0.70-1.30); EST Glomerular Filtration Rate 81 mL/min (>60); Est Glom Filt Rate - Afr Amer 98 mL/min (>60); Estimated Creatinine Clearance 114.07 ml/min; Globulin 4.1 g/dL (2.2-4.2); Glucose 129 mg/dL (74-106); Lipase 23 U/L (13-75); Potassium 4.1 mmol/L (3.5-5.1); Protein, Total 8.3 g/dL (6.4-8.2); Sodium Level 137 mmol/L (136-145)
--- NOTE | 2024-09-26 06:28 | EX.ED.DYSGE1 ---
HPI History of Present Illness Chief Complaint: Nausea/Vomiting/Diarrhea Informant: patient and friend Narrative Narrative: Patient is a 34-year-old male with past medical history of anxiety and depression. He reports around 8:00 he began with generalized abdominal discomfort and then developed bouts of nausea vomiting and diarrhea. He denies any blood or discoloration to either. He denies any known sick contact. He states that his friend ate the same meal and did not develop any symptoms and therefore is low concern for food poisoning. However he can no longer keep food or fluid down and secondary to this comes in for evaluation. [facility] Medical History Depression Anxiety Marijuana use Alcohol use Fatty liver Migraine headache Vapes nicotine containing substance Former smoker Arthrosis of left acromioclavicular joint Impingement of left shoulder Left shoulder pain Home Medications ?Medication ?Instructions ?Recorded ?Last Taken ?Type cholecalciferol (vitamin D3) 1,250 1,250 mcg PO MOTH 12/31/23 Unknown History mcg (50,000 unit) capsule hydroxyzine HCl 10 mg tablet 20 mg PO BID PRN PRN anxiety 12/31/23 Unknown History sertraline 100 mg tablet 100 mg PO QDAY 12/31/23 Unknown History dicyclomine 20 mg tablet 20 mg PO 4X/DAY PRN Abdominal 09/26/24 Unknown Rx bloating/spasm 7 days #28 tabs ondansetron 4 mg disintegrating 4 mg PO TID PRN nausea and 09/26/24 Unknown Rx tablet vomiting #21 tabs Allergy/AdvReac Type Severity Reaction Status Date / Time No Known Allergies Allergy Verified 09/26/24 05:05 Family History Grandfather Lung cancer Grandmother Dementia Surgical History Hx of wisdom tooth extraction Hx of adenoidectomy Hx of appendectomy Hx of tonsillectomy Social History Smoking Status: Current every day smoker tobacco type: cigarettes and e-cigarettes alcohol intake: current alcohol intake frequency: a few times a week ROS ROS ED Constitutional Constitutional ED: Denies chills or fever(s) Eyes Eyes: Denies blurry vision or change in vision ENT ENT ED: Denies sore throat Cardiovascular Cardiovascular: Denies chest pain Respiratory/Chest Respiratory/Chest: Denies cough or dyspnea Gastrointestinal Gastrointestinal: Reports abdominal pain, diarrhea, nausea and vomiting; Denies melena Genitourinary Genitourinary ED: Denies dysuria Musculoskeletal Musculoskeletal: Reports myalgias Integumentary Denies rash Neurologic Neurologic: Denies headache(s) Psychiatric Psychiatric: Reports anxiety and depression Hematologic/Lymphatic Hematologic/Lymphatic: Denies easy bleeding or easy bruising EXAM Physical Exam Const Vital Signs: 09/26/24 05:06 Temperature 98.8 F Temperature Source Oral Pulse Rate 109 H Respiratory Rate 18 Blood Pressure 131/82 H Blood Pressure Mean 98 Pulse Ox 97 Oxygen Delivery Method Room Air Positive well nourished and well developed General Appearance ED: well developed; Negative for pallor HEENT Reports dry mucous membranes HEENT Narrative: Mucous membranes are mildly dry and tacky No tongue or lip swelling no oral lesions no airway edema or compromise No secondary findings to suggest infection in the posterior pharynx Mouth ED: Yes dry mucous membranes Mouth: dry mucous membranes Eyes PERRL and EOMs intact bilaterally General Eye ED: Negative for scleral icterus Neck supple Neck Narrative: No nuchal rigidity or meningeal signs Resp normal respiratory effort and clear to auscultation bilaterally Cardio regular rhythm Rate: tachycardic and other Other Details: Slightly tachycardic rate with regular rhythm No murmur rubs or gallop Radial and carotid pulses are equal and symmetric GI non-distended and no masses GI Narrative: Abdomen soft and nondistended with hyperactive bowel sounds. There is mild diffuse pain with palpation without voluntary guarding or rigidity or pulsatile mass Auscultation: hyperactive bowel sounds Palpation: soft Extremity normal to inspection Neuro oriented x3, CN's II-XII intact bilaterally and no sensory deficits noted Sensorium / Orientation: alert Motor Exam: strength 5/5 throughout Psych mental status grossly normal Skin no rashes or lesions noted and skin turgor normal General Skin Exam: Negative for jaundice or pallor MDM MDM MDM Narrative Medical decision making narrative: Patient arrived to the ER slightly tachycardic but otherwise with stable vitals. He reported bouts of nausea vomiting and diarrhea that began around 8 PM. He denied any recent travel outside the country antibiotic use or livestock exposure to go against an infectious diarrhea such as Salmonella E. coli or C. difficile. As his friend ate the same meal and did not develop symptoms this goes against food poisoning. In order to ensure he does not have signs of acute kidney injury biliary colic acute cholecystitis or pancreatitis basic blood work was obtained. Labs revealed no clinically significant finding. After IV hydration and treatment with Compazine and Toradol patient reported resolution of symptoms and had no further bouts of vomit. Therefore with overall negative workup and improvement of symptoms there is no need for further evaluation in the ER and patient is otherwise safe for discharge History & Record Review Discussion w/independent historian: Patient and Friend Lab Data Attestation: I reviewed the patient's lab results. Labs: Laboratory Results - last 24 hr 09/26/24 05:17 Sodium 137 Potassium 4.1 Chloride 107 Carbon Dioxide 21.0 Anion Gap 9 BUN 28 H Creatinine 1.09 Estim Creat Clear Calc 114.07 Est GFR (MDRD) Af Amer 98 Est GFR (MDRD) Non-Af 81 BUN/Creatinine Ratio 25.7 H Glucose 129 H Calcium 9.4 Magnesium 2.0 Total Bilirubin 0.80 Direct Bilirubin 0.19 AST 22 ALT 58 Alkaline Phosphatase 70 Total Protein 8.3 H Albumin 4.2 Globulin 4.1 Lipase 23 Discharge Plan Triage Chief Complaint: Nausea/Vomiting/Diarrhea ED Provider: Ponce Rojo Dx/Rx/DC Orders Clinical Impression: Nausea vomiting and diarrhea, Mild dehydration, Anxiety and depression Instructions: ED Dehydration (Adult), ED Gastroenteritis, Viral (Adult) Prescriptions: New ondansetron 4 mg tablet,disintegrating 4 mg PO TID PRN (Reason: nausea and vomiting) Qty: 21 0RF dicyclomine 20 mg tablet 20 mg PO 4X/DAY PRN (Reason: Abdominal bloating/spasm) 7 Days Qty: 28 0RF No Action hydroxyzine HCl 10 mg tablet 20 mg PO BID PRN PRN (Reason: anxiety) sertraline 100 mg tablet 100 mg PO QDAY cholecalciferol (vitamin D3) 1,250 mcg (50,000 unit) capsule 1,250 mcg PO MOTH Primary Care Provider: Tess Nicholson Referrals: Tess Nicholson DO [Primary Care Provider] - Activity Restrictions/Additional Instructions: Your workup and exam is consistent with a viral stomach infection. This will last anywhere from 1 to 7 days with the average being 3 days. Keep yourself well-hydrated and return to the ER should you have any further concerns. Print Language: [place] Disposition Disposition: Home, Self Care
[2024-09-26 06:39] VITALS: BP 114/83; PULSE 97; RESP 16; TEMP 37.1; O2SAT 93
== END 2024-09-26 06:52 | disposition home or self-care (01) ==
PROVIDERS: Emergency Provider Emergency Medicine; PCP Family Medicine; Visit Provider Emergency Medicine
DX: R11.2 Nausea with vomiting, unspecified (principal); R19.7 Diarrhea, unspecified; E86.0 Dehydration; F41.9 Anxiety disorder, unspecified; F32.A Depression, unspecified; Z79.899 Other long term (current) drug therapy
CPT/HCPCS: 80048; 80076; 83690; 83735; 96361; 96374; 96375; 99283; A4216